=== PATIENT | female | born 1995 | race Caucasian/White ===

== ENCOUNTER 2017-08-05 03:17 | Emergency (ER) | payer BC, MEDICAID ==
--- NOTE | 2017-08-05 03:44 | ER Document Report ---
ED General - General Chief Complaint: Chest Pain Stated Complaint: CHEST PAIN Time Seen by Provider: 08/05/17 03:41 Notes: This is a pleasant 21-year-old female presents with complaint of onset of chest pain while she was sitting in bed watching [employer] videos. She says it felt like the contraction type pain in her chest followed by a feeling of her heart becoming ice cold. She says the pain has been intermittent since. No pain with deep breathing. No coughing up blood. No recent leg pain or leg swelling. No history of PE or DVT. No recent surgeries. No recent long road trips. Family history of heart disease or heart problems at young age. Patient did play sports growing up. She never had chest pain or syncope during a sporting event. TRAVEL OUTSIDE OF THE [place] IN LAST 30 DAYS: No - Related Data Allergies/Adverse Reactions: latex [Latex] Allergy (Verified 08/05/17 03:29) Past Medical History - Social History Smoking Status: Current Every Day Smoker Frequency of alcohol use: None Drug Abuse: None Family History: Reviewed & Not Pertinent Patient has suicidal ideation: No Patient has homicidal ideation: No Renal/ Medical History: Denies: Hx Peritoneal Dialysis - Immunizations Hx Diphtheria, Pertussis, Tetanus Vaccination: Yes - received during Review of Systems - Review of Systems Notes: My Normal Review Basic REVIEW OF SYSTEMS: CONSTITUTIONAL : Denies fever, chills, or sweats. Denies recent illness. EENT: Denies eye, ear, throat, or mouth pain or symptoms. Denies nasal or sinus congestion. CARDIOVASCULAR: Has chest pain RESPIRATORY: Denies cough, cold, or chest congestion. Denies shortness of breath, difficulty breathing, or wheezing. GASTROINTESTINAL: Denies abdominal pain. Denies nausea, vomiting, or diarrhea. GENITOURINARY: Denies difficulty urinating, painful urination, burning, frequency, or blood in urine. MUSCULOSKELETAL: Denies neck or back pain or joint pain or swelling. SKIN: Denies rash or skin lesions. NEUROLOGICAL: Denies altered mental status or loss of consciousness. Denies headache. Denies weakness or paralysis or loss of use of either side. Denies problems with gait or speech. Denies sensory or motor loss. ALL OTHER SYSTEMS REVIEWED AND NEGATIVE. Physical Exam - Vital signs Vitals: Temp Pulse Resp BP Pulse Ox 97.7 F 88 18 123/74 98 08/05/17 03:30 08/05/17 03:30 08/05/17 03:30 08/05/17 03:30 08/05/17 03:30 - Notes Notes: General Appearance: Well nourished, alert, cooperative, no acute distress, no obvious discomfort. Vitals: reviewed, See vital signs table. Head: no swelling or tenderness to the head Eyes: PERRL, EOMI, Conjuctiva clear Mouth: No decreasd moisture Lungs: No wheezing, No rales, No rhonci, No accessory muscle use, good air exchange bilaterally. Heart: Normal rate, Regular rythm, No murmur, no rub Abdomen: Normal BS, soft, No rigidity, No abdominal tenderness, No guarding, no rebound, no abdominal masses, no organomegaly Extremities: strength 5/5 in all extremities, good pulses in all extremities, no swelling or tenderness in the extremities, no edema. Skin: warm, dry, appropriate color, no rash Neuro: speech clear, oriented x 3, normal affect, responds appropriately to questions. Course - Re-evaluation Re-evalutation: 08/05/17 05:08 Patient continues to look well. Her only risk factor for PE is that she does smoke and does take oral control. No other risk factors that she has no recent travel, no recent surgeries, she is not tachycardic, not tachypneic, not hypoxic. Also clinically her pain is not consistent with that of a PE and that she has no pain with breathing respiration and no coughing or coughing up blood. I do not think she requires further workup for PE at this time. EKG and chest x-ray are negative. I will refer her to cardiology and told her to make an appointment to follow-up with them if her pain continues therefore they can do further workup such as Holter monitor echo if they feel it is needed. I informed her that if her pain keeps recurring or is worsening or she is having difficulty breathing or if she is having pleuritic type pain that she must return to ER so we can reevaluate her. Patient shows understanding of this and will be discharged home. Dictation of this chart was performed using voice recognition software; therefore, there may be some unintended grammatical errors. - Vital Signs Vital signs: Temp Pulse Resp BP Pulse Ox 97.7 F 88 18 123/74 98 08/05/17 03:30 08/05/17 03:30 08/05/17 03:30 08/05/17 03:30 08/05/17 03:30 - EKG Interpretation by Me Additional EKG results interpreted by me: 08/05/17 03:42 EKG is reviewed and interpreted by me. EKG shows normal sinus rhythm with rate of [address] segment elevation or depression. No ischemic T-wave inversions. WA interval, QRS duration, QTc intervals are within normal range. No old EKG available for comparison. Discharge - Discharge Clinical Impression: Chest pain Qualifiers: Chest pain type: unspecified Qualified Code(s): R07.9 - Chest pain, unspecified Condition: Good Disposition: HOME, SELF-CARE Additional Instructions: Chest x-ray and EKG were normal. You are low risk for blood clots in your lungs because your clinical presentation is not consistent with that of blood clots in the lungs. The only risk factor you have is that you do smoke while on control. Please quit smoking. Please follow-up with the singer and unloader , Dr. Villagran, for reevaluation if you continue to have any recurrent pain. Please return to the ER immediately if you have consistent pain, difficulty breathing, or fevers. Also if you have pain that is worse with deep breathing or any coughing up of blood you must return to the ER immediately. Forms: Special Work Note Referrals: RADHA VILLAGRAN MD [ACTIVE STAFF] - Follow up in 3-5 days
--- NOTE | 2017-08-05 04:35 | RADIOLOGY REPORT (SQ) ---
EXAM DESCRIPTION: CHEST PA/LAT COMPLETED DATE/TIME: 08/05/2017 4:07 am REASON FOR STUDY: chest pain COMPARISON: None. EXAM PARAMETERS: NUMBER OF VIEWS: two views TECHNIQUE: Digital Frontal and Lateral radiographic views of the chest acquired. RADIATION DOSE: NA LIMITATIONS: none FINDINGS: LUNGS AND PLEURA: No consolidation, pneumothorax or pleural effusion. MEDIASTINUM AND HILAR STRUCTURES: No masses or contour abnormalities. HEART AND VASCULAR STRUCTURES: Heart normal size. No evidence for failure. BONES: No acute findings. HARDWARE: None in the chest. IMPRESSION: No acute radiographic finding in the chest. TECHNICAL DOCUMENTATION: JOB ID: [id number] [employer]- All Rights Reserved
[2017-08-05 05:17] VITALS: BP 118/64
--- NOTE | 2017-08-05 07:56 | EKG REPORT ---
SEVERITY:- NORMAL ECG - SINUS RHYTHM : Confirmed by: Mauro Benavides MD 05-Aug-2017 07:56:11
== END 2017-08-05 05:26 | disposition home or self-care (01) ==
LOC: ER 03:17
DX: R07.9 Chest pain, unspecified (principal); F17.200 Nicotine dependence, unspecified, uncomplicated; Z91.040 Latex allergy status; Z79.3 Long term (current) use of hormonal contraceptives
CPT/HCPCS: 71020; 93005; 93010; 99285

== ENCOUNTER 2019-06-15 13:47 | Outpatient (CLI) | payer MEDICAID ==
[2019-06-15 16:05] LABS: APPEARANCE,URINE SLIGHTLY-CLOUDY; BILIRUBIN,URINE NEGATIVE (NEGATIVE); COLOR,URINE YELLOW; GLUCOSE, URINE NEGATIVE (NEGATIVE); KETONES,URINE 20 mg/dL (NEGATIVE); LEUKOCYTE ESTERASE,URINE MODERATE (NEGATIVE); NITRITE,URINE NEGATIVE (NEGATIVE); PROTEIN,URINE NEGATIVE (NEGATIVE); URINE SPECIFIC GRAVITY 1.015
[2019-06-15 16:15] LABS: URINE AMPHETAMINES SCREEN NEGATIVE; URINE BARBITURATES SCREEN NEGATIVE; URINE BENZODIAZEPINES SCREEN NEGATIVE; URINE COCAINE SCREEN NEGATIVE; URINE MARIJUANA (THC) SCREEN NEGATIVE; URINE METHADONE SCREEN NEGATIVE; URINE PHENCYCLIDINE SCREEN NEGATIVE
--- NOTE | 2019-06-15 16:48 | RADIOLOGY REPORT (SQ) ---
EXAM DESCRIPTION: U/S OB LIMITED COMPLETED DATE/TIME: 06/15/2019 4:23 pm REASON FOR STUDY: placenta well being and placement pt fell COMPARISON: None. TECHNIQUE: Limited transabdominal grayscale ultrasound for evaluation of specific requested obstetri preet parameters. LIMITATIONS: None. FINDINGS: CERVICAL LENGTH: 3.1 cm. Closed. CAMILO: 15.3 cm. FHR: 160 beats per minute. PRESENTATION: Cephalic. PLACENTA: Anterior location. ANATOMY: Not assessed OTHER: No other significant findings. IMPRESSION: LIMITED OBSTETRICAL ULTRASOUND WITH MEASURED PARAMETERS DELINEATED ABOVE. Trimester of : Third trimester - 28 weeks to delivery. TECHNICAL DOCUMENTATION: JOB ID: [id number] [employer]- All Rights Reserved Reading location - IP/workstation name: [email or web address]
== END 2019-06-15 17:30 | disposition home or self-care (01) ==
LOC: LC 13:47
PROVIDERS: ATTEND Obstetrics & Gynecology
PROC: 4A1HXCZ Monitoring of Products of Conception, Cardiac Rate, External Approach (ICD-10-PCS; principal; 2019-06-15)
DX: O99.89 Other specified diseases and conditions complicating pregnancy, childbirth and the puerperium (principal); M54.9 Dorsalgia, unspecified; Z3A.30 30 weeks gestation of pregnancy; W19.XXXA Unspecified fall, initial encounter
CPT/HCPCS: 76815; 80307; 81001

== ENCOUNTER 2019-06-25 16:09 | Emergency (ER) | payer MEDICAID ==
[2019-06-25 16:19] VITALS: BP 121/68
--- NOTE | 2019-06-25 17:01 | ER Document Report ---
ED Medical Screen (RME) - General Chief Complaint: Hemorrhoids Stated Complaint: hEMORRHOIDS Time Seen by Provider: 06/25/19 16:58 Primary Care Provider: SHAGUFTA CHAHAL MD [Primary Care Provider] - Follow up as needed Mode of Arrival: Ambulatory Information source: Patient Notes: 23-year-old female presents to ED for complaint of a hard painful hemorrhoid. She states she is 32 weeks . She states she went to the [facility] CL[facility] and they sent her to the emergency room. Patient is alert oriented respirations regular nonlabored. 2 para 1. She states her due date is August 17. I have greeted and performed a rapid initial assessment of this patient. A comprehensive ED assessment and evaluation of the patient, analysis of test results and completion of medical decision making process will be conducted by an additional ED providers. TRAVEL OUTSIDE OF THE [place] IN LAST 30 DAYS: No - Related Data Allergies/Adverse Reactions: latex [Latex] Allergy (Verified 08/05/17 03:29) Past Medical History Renal/ Medical History: Denies: Hx Peritoneal Dialysis - Immunizations Hx Diphtheria, Pertussis, Tetanus Vaccination: Yes - received during Physical Exam - Vital signs Vitals: Temp Pulse Resp BP Pulse Ox 97.7 F 124 H 18 121/68 97 06/25/19 16:18 06/25/19 16:18 06/25/19 16:18 06/25/19 16:18 06/25/19 16:18 Course - Vital Signs Vital signs: Temp Pulse Resp BP Pulse Ox 97.7 F 124 H 18 121/68 97 06/25/19 16:18 06/25/19 16:18 06/25/19 16:18 06/25/19 16:18 06/25/19 16:18 Doctor's Discharge - Discharge Referrals: SHAGUFTA CHAHAL MD [Primary Care Provider] - Follow up as needed
[2019-06-25 18:24] LABS: ABSOLUTE EOSINOPHILS # (AUTO) 0.1 10^3/uL (0.0-0.6); ABSOLUTE LYMPHOCYTES (AUTO) 2.8 10^3/uL (0.5-4.7); ABSOLUTE MONOCYTES (AUTO) 0.5 10^3/uL (0.1-1.4); ABSOLUTE NEUT (AUTO) 7.4 10^3/uL (1.7-8.2); BASOPHILS % (AUTO) 0.2 % (0-2); EOSINOPHILS % (AUTO) 0.8 % (0-6); HEMATOCRIT 31.8 % (36.0-47.0); LYMPHOCYTES % (AUTO) 26.1 % (13-45); MEAN CORPUSCULAR HEMOGLOBIN 31.6 pg (27.0-33.4); MEAN CORPUSCULAR HGB CONC 34.6 g/dL (32.0-36.0); MEAN CORPUSCULAR VOLUME 91 fl (80-97); MONOCYTES % (AUTO) 4.6 % (3-13); PLATELET COUNT 346 10^3/uL (150-450); RED BLOOD COUNT 3.49 10^6/uL (3.72-5.28); RED CELL DISTRIBUTION WIDTH 12.8 % (11.5-14.0); SEGMENTED NEUTROPHILS % (AUTO) 68.3 % (42-78); TOTAL CELLS COUNTED % (AUTO) 100 %; WHITE BLOOD COUNT 10.9 10^3/uL (4.0-10.5)
[2019-06-25 18:28] LABS: INTERNATIONAL RATION (INR) 0.99; PROTHROMBIN TIME 13.1 SEC (11.4-15.4)
[2019-06-25 18:29] LABS: PARTIAL THROMBOPLASTIN TIME 24.9 SEC (23.5-35.8)
[2019-06-25 18:42] LABS: APPEARANCE,URINE SLIGHTLY-CLOUDY; BILIRUBIN,URINE NEGATIVE (NEGATIVE); COLOR,URINE YELLOW; GLUCOSE, URINE 50 mg/dL (NEGATIVE); KETONES,URINE 20 mg/dL (NEGATIVE); PROTEIN,URINE NEGATIVE (NEGATIVE); URINE SPECIFIC GRAVITY 1.017
[2019-06-25 18:45] LABS: ALBUMIN 3.6 g/dL (3.5-5.0); ALKALINE PHOSPHATASE 137 U/L (38-126); ANION GAP 8 (5-19); ASPARTATE AMINO TRANSFERASE 16 U/L (14-36); BILIRUBIN,DIRECT 0.1 mg/dL (0.0-0.4); BILIRUBIN,TOTAL 0.3 mg/dL (0.2-1.3); BLOOD UREA NITROGEN 4 mg/dL (7-20); CALCIUM 8.9 mg/dL (8.4-10.2); CARBON DIOXIDE 23 mmol/L (22-30); CHLORIDE 104 mmol/L (98-107); GLUCOSE 108 mg/dL (75-110); TOTAL PROTEIN 6.3 g/dL (6.3-8.2)
[2019-06-25] MEDS ORDERED: ACETAMINOPHEN 325 MG TABLET PO ONE (21:12)
[2019-06-25] MEDS ORDERED: LIDOCAINE 2% JELLY 30 ML TUBE TOP ONE (21:34)
[2019-06-25] MEDS ORDERED: CEPHALEXIN 500 MG CAPSULE PO ONE (21:34)
--- NOTE | 2019-06-25 21:40 | ER Document Report ---
HPI - HPI Patient complains to provider of: Rectal pain Time Seen by Provider: 06/25/19 16:58 Onset: This morning Onset/Duration: Gradual Quality of pain: Achy Pain Level: 3 Context: Patient presents complaining of painful hemorrhoid that she developed today. Patient saw her [facility] [employer] provider today for this complaint and she was given a prescription for lidocaine jelly as well as hydrocortisone cream. Patient got the prescription for the hydrocortisone although has not used it yet. Patient states the pharmacy was out of the lidocaine. Patient is currently 32 weeks . Patient reports movement and no problems at this time with the . Associated Symptoms: Other - Rectal tenderness. denies: Nausea, Vomiting Exacerbated by: Movement Relieved by: Denies Similar symptoms previously: No Recently seen / treated by doctor: Yes - ROS ROS below otherwise negative: Yes Systems Reviewed and Negative: Yes All other systems reviewed and negative - CONSTITUTIONAL Constitutional: DENIES: Fever - GASTROINTESTINAL Gastrointestinal: DENIES: Abdominal Pain, Nausea Notes: Rectal tenderness with hemorrhoid - URINARY Urinary: DENIES: Dysuria, Urgency, Frequency - REPRODUCTIVE Reproductive: REPORTS: : - MUSCULOSKELETAL Musculoskeletal: DENIES: Extremity pain - DERM Skin Color: Normal Skin Problems: None Past Medical History - General Information source: Patient - Social History Smoking Status: Current Every Day Smoker Chew tobacco use (# tins/day): No Smoking Education Provided: Yes Frequency of alcohol use: None Drug Abuse: None Occupation: None Lives with: Family Family History: Reviewed & Not Pertinent Patient has suicidal ideation: No Patient has homicidal ideation: No - Medical History Medical History: Negative Renal/ Medical History: Denies: Hx Peritoneal Dialysis Surgical Hx: Negative - Immunizations Hx Diphtheria, Pertussis, Tetanus Vaccination: Yes - received during Vertical Provider Document - CONSTITUTIONAL Agree With Documented VS: No - not tachycardic Exam Limitations: No Limitations General Appearance: WD/WN, No Apparent Distress - INFECTION CONTROL TRAVEL OUTSIDE OF THE [place] IN LAST 30 DAYS: No - HEENT HEENT: Atraumatic, Normocephalic - NECK Neck: Normal Inspection, Supple - RESPIRATORY Respiratory: Breath Sounds Normal, No Respiratory Distress - CARDIOVASCULAR Cardiovascular: Regular Rate, Regular Rhythm. negative: Tachycardia - GI/ABDOMEN Gastrointestinal: Abdomen Soft Notes: gravid - REPRODUCTIVE Notes: Patient with external hemorrhoids, tender to palpation, no active bleeding. - BACK Back: Normal Inspection. negative: CVA Tenderness-Right, CVA Tenderness-Left - MUSCULOSKELETAL/EXTREMETIES Musculoskeletal/Extremeties: MAEW - NEURO Level of Consciousness: Awake, Alert, Appropriate Motor/Sensory: No Motor Deficit - DERM Integumentary: Warm, No Rash Course - Re-evaluation Re-evalutation: 06/25/19 21:36 Patient with external hemorrhoids that developed today. Patient saw her primary doctor for this complaint earlier today and was prescribed medicine. Patient states the pharmacy did not have the lidocaine jelly in stock and she has not yet use the steroid cream. Discussed with patient treatment options. Patient encouraged to use the prescribed medicine that she has at home as directed. Patient will be given topical lidocaine jelly here for symptomatic relief. She is without any findings worrisome for thrombosed hemorrhoid at this time. Patient encouraged to use her prescribed medicines at home as well as the topical lidocaine jelly for symptomatic improvement. Discussed sitz bath's. Patient also encouraged to avoid activities that increase her intraabdominal pressure. Patient is agreeable with discharge plan of care here tonight. Pt With findings worrisome for possible early UTI. Urine will be cultured and patient started on a short course of antibiotics at this time. - Vital Signs Vital signs: Temp Pulse Resp BP Pulse Ox 97.7 F 124 H 18 121/68 97 06/25/19 16:18 06/25/19 16:18 06/25/19 16:18 06/25/19 16:18 06/25/19 16:18 - Laboratory Result Diagrams: 06/25/19 18:06 06/25/19 18:06 Laboratory results interpreted by me: 06/25/19 06/25/19 06/25/19 17:55 18:06 18:06 WBC 10.9 H RBC 3.49 L Hgb 11.0 L Hct 31.8 L Sodium 134.9 L BUN 4 L Creatinine 0.34 L Alkaline Phosphatase 137 H Urine Glucose (UA) 50 H Urine Ketones 20 H Urine Blood SMALL H Urine Urobilinogen 2.0 H Leukocyte Esterase Rfl MODERATE H 06/25/19 21:36 Labs- Entire Visit 06/25/19 06/25/19 06/25/19 17:55 18:06 18:06 WBC 10.9 H RBC 3.49 L Hgb 11.0 L Hct 31.8 L MCV 91 MCH 31.6 MCHC 34.6 RDW 12.8 Plt Count 346 Lymph % (Auto) 26.1 Garza % (Auto) 4.6 Eos % (Auto) 0.8 Baso % (Auto) 0.2 Absolute Neuts (auto) 7.4 Absolute Lymphs (auto) 2.8 Absolute Monos (auto) 0.5 Absolute Eos (auto) 0.1 Absolute Basos (auto) 0.0 Seg Neutrophils % 68.3 PT 13.1 INR 0.99 APTT 24.9 Sodium Potassium Chloride Carbon Dioxide Anion Gap BUN Creatinine Est GFR ( Amer) Est GFR (MDRD) Non-Af Glucose Calcium Total Bilirubin Direct Bilirubin Neonat Total Bilirubin Neonat Direct Bilirubin Neonat Indirect Bili AST ALT Alkaline Phosphatase Total Protein Albumin Urine Color YELLOW Urine Appearance SLIGHTLY-CLOUDY Urine pH 6.0 Ur Specific Murray 1.017 Urine Protein NEGATIVE Urine Glucose (UA) 50 H Urine Ketones 20 H Urine Blood SMALL H Urine Nitrite (Reflex) NEGATIVE Urine Bilirubin NEGATIVE Urine Urobilinogen 2.0 H Leukocyte Esterase Rfl MODERATE H Urine RBC (Auto) 5 Urine Bacteria (Auto) TRACE Urine WBC (Reflex) 6 Squamous Epi Cells Auto 6 Urine Mucus (Auto) MANY Urine Ascorbic Acid NEGATIVE 06/25/19 18:06 WBC RBC Hgb Hct MCV MCH MCHC RDW Plt Count Lymph % (Auto) Garza % (Auto) Eos % (Auto) Baso % (Auto) Absolute Neuts (auto) Absolute Lymphs (auto) Absolute Monos (auto) Absolute Eos (auto) Absolute Basos (auto) Seg Neutrophils % PT INR APTT Sodium 134.9 L Potassium 4.0 Chloride 104 Carbon Dioxide 23 Anion Gap 8 BUN 4 L Creatinine 0.34 L Est GFR ( Amer) > 60 Est GFR (MDRD) Non-Af > 60 Glucose 108 Calcium 8.9 Total Bilirubin 0.3 Direct Bilirubin 0.1 Neonat Total Bilirubin Not Reportable Neonat Direct Bilirubin Not Reportable Neonat Indirect Bili Not Reportable AST 16 ALT 9 Alkaline Phosphatase 137 H Total Protein 6.3 Albumin 3.6 Urine Color Urine Appearance Urine pH Ur Specific Murray Urine Protein Urine Glucose (UA) Urine Ketones Urine Blood Urine Nitrite (Reflex) Urine Bilirubin Urine Urobilinogen Leukocyte Esterase Rfl Urine RBC (Auto) Urine Bacteria (Auto) Urine WBC (Reflex) Squamous Epi Cells Auto Urine Mucus (Auto) Urine Ascorbic Acid Discharge - Discharge Clinical Impression: UTI (urinary tract infection) Qualifiers: Urinary tract infection type: site unspecified Hematuria presence: with hematuria Qualified Code(s): N39.0 - Urinary tract infection, site not specified Hemorrhoids Qualifiers: Hemorrhoid type: unspecified Qualified Code(s): K64.9 - Unspecified hemorrhoids Condition: Stable Disposition: HOME, SELF-CARE Instructions: Cephalexin ([facility]), Hemorrhoids ([facility]), Urinary Tract Infection ([facility]) Additional Instructions: Return immediately for any new or worsening symptoms Followup with your primary care provider, call tomorrow to make a followup appointment Use medication that your doctor prescribed you today as directed Apply the topical lidocaine jelly 4 times a day as needed for pain relief Prescriptions: Cephalexin Monohydrate [Keflex 500 mg Capsule] 500 mg PO BID 5 Days capsule Forms: Smoking Cessation Education Referrals: SHAGUFTA CHAHAL MD [Primary Care Provider] - Follow up as needed
[2019-06-25] MEDS ORDERED: LIDOCAINE 2% JELLY 30 ML TUBE ONE (22:09)
== END 2019-06-25 22:21 | disposition home or self-care (01) ==
LOC: ER 16:09
DX: O22.43 Hemorrhoids in pregnancy, third trimester (principal); O23.43 Unspecified infection of urinary tract in pregnancy, third trimester; O26.893 Other specified pregnancy related conditions, third trimester; R31.9 Hematuria, unspecified; O99.333 Smoking (tobacco) complicating pregnancy, third trimester; F17.200 Nicotine dependence, unspecified, uncomplicated; Z3A.32 32 weeks gestation of pregnancy
CPT/HCPCS: 36415; 87086; 85025; 85610; 85730; 80053; 81001; J3490 ×2; 99283

== ENCOUNTER 2019-07-17 17:30 | Outpatient (CLI) | payer SELFPAY ==
[2019-07-17 18:23] LABS: AMORPHOUS SEDIMENT,URINE TRACE /HPF; APPEARANCE,URINE CLOUDY; BILIRUBIN,URINE NEGATIVE (NEGATIVE); COLOR,URINE YELLOW; GLUCOSE, URINE 150 mg/dL (NEGATIVE); KETONES,URINE TRACE mg/dL (NEGATIVE); LEUKOCYTE ESTERASE,URINE MODERATE (NEGATIVE); NITRITE,URINE NEGATIVE (NEGATIVE); PROTEIN,URINE NEGATIVE (NEGATIVE); URINE SPECIFIC GRAVITY 1.014
[2019-07-17] MEDS ORDERED: RINGERS SOLUTION,LACTATED 1,000 ML IV PRN (18:31)
[2019-07-17] MEDS ORDERED: HYDROXYZINE PAMOATE 50 MG CAPSULE ONE (18:39)
[2019-07-17 18:58] LABS: URINE AMPHETAMINES SCREEN NEGATIVE; URINE BARBITURATES SCREEN NEGATIVE; URINE BENZODIAZEPINES SCREEN NEGATIVE; URINE COCAINE SCREEN NEGATIVE; URINE MARIJUANA (THC) SCREEN NEGATIVE; URINE METHADONE SCREEN NEGATIVE; URINE PHENCYCLIDINE SCREEN NEGATIVE
[2019-07-17] MEDS ORDERED: HYDROXYZINE PAMOATE 50 MG CAPSULE PO ONE (19:15)
== END 2019-07-17 20:47 | disposition home or self-care (01) ==
LOC: LC 17:30
PROVIDERS: ATTEND Obstetrics & Gynecology
DX: O47.03 False labor before 37 completed weeks of gestation, third trimester (principal); Z3A.34 34 weeks gestation of pregnancy
CPT/HCPCS: 59025; 80307; 81001; 84112

== ENCOUNTER 2019-08-15 02:23 | Outpatient (CLI) | payer MEDICAID ==
--- NOTE | 2019-08-15 02:25 | Non Stress Test Report ---
Non Stress Test Datetime Report Generated by CPN: 08/15/2019 02:25 DEMOGRAPHIC EGA NST: 35.0 INDICATION Indication for Study: Ordered by Provider Indication for Study (NST) Other: uc's URINE RESULTS Urine Protein, NST: Negative Urine Ketones - NST: Positive Urine Glucose - NST: Positive Urine Blood - NST: Negative MONITORING Monitor Explained: Monitor Explained; Test Explained; Patient Verbalized Understanding Time on Monitor: 07/17/2019 17:55 Time off Monitor: 07/17/2019 20:08 NST Duration: 133 NST INTERVENTIONS NST Interventions: IV Fluids Physician Notified NST: Dr. Devyn BABY A: [id number] BABY A Movement : Present Contraction Frequency : 2-3 FHR Baseline : 145 Accelerations : 15X15 Variability : Moderate 6-25bpm NST Review: Meets Criteria for Reactive NST NST Review and Verified By : Lucila Saleem RN Results: Reactive NST REPORT Report Trigger: Send Report
[2019-08-15 02:49] LABS: APPEARANCE,URINE SLIGHTLY-CLOUDY; BILIRUBIN,URINE NEGATIVE (NEGATIVE); COLOR,URINE YELLOW; GLUCOSE, URINE NEGATIVE (NEGATIVE); KETONES,URINE 20 mg/dL (NEGATIVE); LEUKOCYTE ESTERASE,URINE MODERATE (NEGATIVE); NITRITE,URINE NEGATIVE (NEGATIVE); PROTEIN,URINE 30 mg/dL (NEGATIVE); URINE SPECIFIC GRAVITY 1.018
[2019-08-15 03:05] LABS: URINE AMPHETAMINES SCREEN NEGATIVE; URINE BARBITURATES SCREEN NEGATIVE; URINE BENZODIAZEPINES SCREEN NEGATIVE; URINE COCAINE SCREEN NEGATIVE; URINE MARIJUANA (THC) SCREEN NEGATIVE; URINE METHADONE SCREEN NEGATIVE; URINE PHENCYCLIDINE SCREEN NEGATIVE
--- NOTE | 2019-08-15 04:08 | Non Stress Test Report ---
Non Stress Test Datetime Report Generated by CPN: 08/15/2019 04:07 DEMOGRAPHIC EGA NST: 39.1 INDICATION Indication for Study (NST) Other: Labor check URINE RESULTS Urine Protein, NST: Positive Urine Ketones - NST: Positive Urine Glucose - NST: Negative Urine Blood - NST: Negative MONITORING Monitor Explained: Monitor Explained; Test Explained; Patient Verbalized Understanding Time on Monitor: 08/15/2019 02:04 Time off Monitor: 08/15/2019 03:57 NST Duration: 113 NST INTERVENTIONS NST Interventions: PO Hydration Physician Notified NST: Miranda BABY A Movement : Present Contraction Frequency : 4-7 FHR Baseline : 135 Accelerations : 15X15 Decelerations : None Variability : Moderate 6-25bpm NST Review: Meets Criteria for Reactive NST NST Review and Verified By : Philly Pagan RN NST Results: Reactive NST REPORT Report Trigger: Send Report
== END 2019-08-15 04:03 | disposition home or self-care (01) ==
LOC: LC 02:23
PROVIDERS: ATTEND Obstetrics & Gynecology
PROC: 4A1HXCZ Monitoring of Products of Conception, Cardiac Rate, External Approach (ICD-10-PCS; principal; 2019-08-15)
DX: O47.1 False labor at or after 37 completed weeks of gestation (principal); Z3A.39 39 weeks gestation of pregnancy
CPT/HCPCS: 59025; 80307; 81005; 84112

== ENCOUNTER 2020-01-20 08:45 | Emergency (ER) | payer SELFPAY ==
[2020-01-20] MEDS ORDERED: ONDANSETRON HCL INJ/PF 4 MG/2 ML SDV IV ONE (09:44)
--- NOTE | 2020-01-20 09:45 | ER Document Report ---
ED Medical Screen (RME) - General Chief Complaint: Abdominal Pain Stated Complaint: ABDOMINAL PAIN Time Seen by Provider: 01/20/20 09:43 Primary Care Provider: ELIZABETH GOTTI MD [Primary Care Provider] - Follow up as needed Notes: HPI: 24-year-old female presenting to the emergency department stating "I think it is my gallbladder". Patient states she has had problems with right upper quadrant and epigastric pain over the last month woke her from sleep around 330 this morning and is been constant and severe ever since. Patient points to the epigastric right upper quadrant region as the site of her discomfort she has had nausea with this no fever. Patient denies PHYSICAL EXAMINATION: Moderately uncomfortable. There is moderate tenderness to the epigastric right upper quadrant region on palpation no tenderness in the lower abdomen and pelvis on palpation limited by positioning in triage. I have greeted and performed a rapid initial assessment of this patient. A comprehensive ED assessment and evaluation of the patient, analysis of test results and completion of medical decision making process will be conducted by an additional ED providers. TRAVEL OUTSIDE OF THE [place] IN LAST 30 DAYS: No - Related Data Allergies/Adverse Reactions: latex [Latex] Allergy (Verified 08/18/19 19:15) Past Medical History Renal/ Medical History: Denies: Hx Peritoneal Dialysis - Immunizations Hx Diphtheria, Pertussis, Tetanus Vaccination: Yes - received during Physical Exam - Vital signs Vitals: Temp Pulse Resp BP Pulse Ox 97.7 F 87 20 97/50 L 99 01/20/20 08:51 01/20/20 08:51 01/20/20 08:51 01/20/20 08:51 01/20/20 08:51 Course - Vital Signs Vital signs: Temp Pulse Resp BP Pulse Ox 97.7 F 87 20 97/50 L 99 01/20/20 08:51 01/20/20 08:51 01/20/20 08:51 01/20/20 08:51 01/20/20 08:51 Doctor's Discharge - Discharge Referrals: ELIZABETH GOTTI MD [Primary Care Provider] - Follow up as needed
[2020-01-20] MEDS ORDERED: KETOROLAC TROMETHAMINE INJ/PF 30 MG/1 ML SDV IV ONE (10:08)
[2020-01-20] MEDS ORDERED: MORPHINE SULFATE 10 MG/ML INJ IV ONE (10:08)
[2020-01-20] MEDS ORDERED: NORMAL SALINE 1000 ML 1,000 ML IV ONE (10:08)
[2020-01-20 10:15] LABS: ABSOLUTE LYMPHOCYTES (AUTO) 1.2 10^3/uL (0.5-4.7); ABSOLUTE MONOCYTES (AUTO) 0.4 10^3/uL (0.1-1.4); ABSOLUTE NEUT (AUTO) 8.2 10^3/uL (1.7-8.2); BASOPHILS % (AUTO) 0.3 % (0-2); EOSINOPHILS % (AUTO) 0.2 % (0-6); HEMATOCRIT 38.4 % (36.0-47.0); HEMOGLOBIN 13.5 g/dL (12.0-15.5); LYMPHOCYTES % (AUTO) 12.5 % (13-45); MEAN CORPUSCULAR HEMOGLOBIN 32.3 pg (27.0-33.4); MEAN CORPUSCULAR VOLUME 92 fl (80-97); MONOCYTES % (AUTO) 3.7 % (3-13); PLATELET COUNT 292 10^3/uL (150-450); RED BLOOD COUNT 4.17 10^6/uL (3.72-5.28); RED CELL DISTRIBUTION WIDTH 13.5 % (11.5-14.0); SEGMENTED NEUTROPHILS % (AUTO) 83.3 % (42-78); TOTAL CELLS COUNTED % (AUTO) 100 %; WHITE BLOOD COUNT 9.9 10^3/uL (4.0-10.5)
[2020-01-20 10:31] LABS: ALBUMIN 4.7 g/dL (3.5-5.0); ALKALINE PHOSPHATASE 105 U/L (38-126); ANION GAP 8 (5-19); ASPARTATE AMINO TRANSFERASE 111 U/L (14-36); BILIRUBIN,DIRECT 0.4 mg/dL (0.0-0.4); BILIRUBIN,TOTAL 0.8 mg/dL (0.2-1.3); BLOOD UREA NITROGEN 12 mg/dL (7-20); CALCIUM 9.2 mg/dL (8.4-10.2); CARBON DIOXIDE 25 mmol/L (22-30); CHLORIDE 103 mmol/L (98-107); GLUCOSE 99 mg/dL (75-110); POTASSIUM 4.4 mmol/L (3.6-5.0); TOTAL PROTEIN 7.3 g/dL (6.3-8.2)
--- NOTE | 2020-01-20 11:03 | ER Document Report ---
Entered by JOHNSON VINSON SCRIBE 01/20/20 1004 Acting as scribe for:FREDERIC CHURCH MD ED GI/ - General Chief Complaint: Abdominal Pain Stated Complaint: ABDOMINAL PAIN Time Seen by Provider: 01/20/20 09:43 Primary Care Provider: ELIZABETH GOTTI MD [Primary Care Provider] - Follow up as needed Mode of Arrival: Ambulatory Information source: Patient Notes: This 24-year-old female patient presents to the emergency department today with complaints of abdominal pain since 3:30 AM this morning. Patient states that she thinks it is her gallbladder, mentioning that she has had intermittent pain like this for the last month. Patient states that she ate taco salad for dinner last night. Patient has had associated nausea and vomiting. TRAVEL OUTSIDE OF THE [place] IN LAST 30 DAYS: No - Related Data Allergies/Adverse Reactions: latex [Latex] Allergy (Verified 01/20/20 09:46) Home Medications: omeprazole Past Medical History - General Information source: Patient - Social History Smoking Status: Current Every Day Smoker Cigarette use (# per day): Yes Chew tobacco use (# tins/day): No Frequency of alcohol use: None Drug Abuse: None Lives with: Family Family History: Reviewed & Not Pertinent Patient has homicidal ideation: No - Medical History Medical History: Negative Surgical Hx: Negative - Immunizations Hx Diphtheria, Pertussis, Tetanus Vaccination: Yes - received during Review of Systems - Review of Systems Constitutional: No symptoms reported EENT: No symptoms reported Cardiovascular: No symptoms reported Respiratory: No symptoms reported Gastrointestinal: See HPI, Abdominal pain, Nausea, Vomiting Genitourinary: No symptoms reported Female Genitourinary: Last menstrual period - 01/16/20 Musculoskeletal: No symptoms reported Skin: No symptoms reported Hematologic/Lymphatic: No symptoms reported Neurological/Psychological: No symptoms reported -: Yes All other systems reviewed and negative Physical Exam - Vital signs Vitals: Temp Pulse Resp BP Pulse Ox 97.7 F 87 20 97/50 L 99 01/20/20 08:51 01/20/20 08:51 01/20/20 08:51 01/20/20 08:51 01/20/20 08:51 - Notes Notes: Physical Exam: General: Alert, appears uncomfortable, initially upon entry into the room the patient is bent over at the waist leaning on the bed for comfort. HEENT: Normocephalic. Atraumatic. PERRL. Extraocular movements intact. Oropharynx clear. Neck: Supple. Non-tender. Respiratory: No respiratory distress. Clear and equal breath sounds bilaterally. Cardiovascular: Regular rate and rhythm. Abdominal: Epigastric and right upper quadrant tenderness with palpation. No distension. Normal Bowel Sounds. Back: No gross abnormalities. Extremities: Moves all four extremities. Upper extremities: Normal inspection. Normal ROM. Lower extremities: Normal inspection. No edema. Normal ROM. Neurological: Normal cognition. AAOx4. Normal speech. Psychological: Normal affect. Normal Mood. Skin: Warm. Dry. Normal color. Course - Vital Signs Vital signs: Temp Pulse Resp BP Pulse Ox 98.4 F 72 16 108/57 L 96 01/20/20 12:57 01/20/20 12:57 01/20/20 12:57 01/20/20 12:57 01/20/20 12:57 - Laboratory Result Diagrams: 01/20/20 09:54 01/20/20 09:54 Laboratory results interpreted by me: 01/20/20 01/20/20 01/20/20 09:54 09:54 11:39 Lymph % (Auto) 12.5 L Seg Neutrophils % 83.3 H Sodium 136.4 L Creatinine 0.45 L AST 111 H ALT 70 H Urine Blood MODERATE H Ur Leukocyte Esterase SMALL H - Diagnostic Test Radiology reviewed: Image reviewed, Reports reviewed - Gallbladder ultrasound shows gallstones without gallbladder wall thickening or pericholecystic fluid. Common bile duct is dilated to 8.4 mm. There is no intrahepatic ductal dilatation. Discharge - Discharge Clinical Impression: Gallbladder colic Cholelithiasis Qualifiers: Cholelithiasis location: gallbladder Cholecystitis presence: without cholecystitis Biliary obstruction: without biliary obstruction Qualified Code(s): K80.20 - Calculus of gallbladder without cholecystitis without obstruction Condition: Stable Disposition: HOME, SELF-CARE Additional Instructions: Gallbladder Disease: Your evaluation shows evidence of gallbladder disease. The gallbladder is a pouch under the liver which stores bile. Stones, infection, or irritation of the gallbladder cause attacks of pain. Certain foods -- fats in particular -- may provoke attacks. The usual treatment for gallbladder disease is surgical removal of the gallbladder -- called a cholecystectomy. You will be referred to a physician qualified to advise you on the best treatment for your problem. Hospitalization is not necessary. Take clear liquids only until you are painfree. After that, you should stay on a low-fat diet, with frequent SMALL meals. Call the doctor or return at once if you develop severe pain, repeated vomiting, fever, or jaundice (a yellow color in the skin and whites of the eyes). Take the pain medication as prescribed if needed for a gallbladder attack. Stay on a low-fat diet and eat small meals. Call [facility] today to schedule an appointment for next week. RETURN TO THE EMERGENCY ROOM IF ANY NEW OR WORSENING SYMPTOMS. Prescriptions: Hydrocodone/Acetaminophen [[place] 5-325 mg Tablet] 1 tab PO ASDIR PRN #12 tablet PRN Reason: For Pain Referrals: ELIZABETH GOTTI MD [Primary Care Provider] - Follow up as needed [facility] [Provider Group] - Follow up in 3-5 days I personally performed the services described in the documentation, reviewed and edited the documentation which was dictated to the scribe in my presence, and it accurately records my words and actions.
[2020-01-20 12:06] LABS: APPEARANCE,URINE CLEAR; BILIRUBIN,URINE NEGATIVE (NEGATIVE); COLOR,URINE YELLOW; GLUCOSE, URINE NEGATIVE (NEGATIVE); KETONES,URINE NEGATIVE (NEGATIVE); LEUKOCYTE ESTERASE,URINE SMALL (NEGATIVE); NITRITE,URINE NEGATIVE (NEGATIVE); PROTEIN,URINE NEGATIVE (NEGATIVE); URINE SPECIFIC GRAVITY 1.005; UROBILINOGEN,URINE NEGATIVE mg/dL (<2.0)
--- NOTE | 2020-01-20 12:42 | RADIOLOGY REPORT (SQ) ---
EXAM DESCRIPTION: U/S ABDOMEN LIMITED W/O DOP IMAGES COMPLETED DATE/TIME: 01/20/2020 12:32 pm REASON FOR STUDY: RUQ pain COMPARISON: None. TECHNIQUE: Dynamic and static grayscale images acquired of the abdomen and recorded on PACS. Rachelo shena selected color Doppler and spectral images recorded. LIMITATIONS: None. FINDINGS: PANCREAS: No masses. Visualized pancreatic duct normal caliber. LIVER: The liver measures 14.7 cm in length, normal size. No masses. Echotexture normal. LIVER VASCULATURE: Normal directional flow of the main portal vein and hepatic veins. GALLBLADDER: Gallstones. The gallbladder wall measures 2.4 mm, normal wall thickness. No pericholecy stic fluid. ULTRASOUND-DETECTED JOSE'S SIGN: Negative. INTRAHEPATIC DUCTS AND COMMON DUCT: CBD measures 8.4 mm in AP diameter and is dilated. The intrahepa tic ducts normal caliber. No filling defects. INFERIOR VENA CAVA: Normal flow. AORTA: No aneurysm. RIGHT KIDNEY: The right kidney measures 10.2 x 4.1 cm, normal size. Normal echogenicity. Mild hydr onephrosis suggested in the upper- mid pole of the kidney. PERITONEAL AND RIGHT PLEURAL SPACE: No ascites or effusions. OTHER: No other significant findings. IMPRESSION: 1. Gallstones. 2. The common bile duct is dilated and measures 8.4 mm in diameter. Correlation suggested. 3. Additional finding as above. TECHNICAL DOCUMENTATION: JOB ID: [id number] 2010 [employer]- All Rights Reserved Reading location - IP/workstation name: [email or web address]
[2020-01-20 12:58] VITALS: BP 108/57
== END 2020-01-20 13:55 | disposition home or self-care (01) ==
LOC: ER 08:45
DX: K80.20 Calculus of gallbladder without cholecystitis without obstruction (principal); R11.2 Nausea with vomiting, unspecified; R10.816 Epigastric abdominal tenderness; R10.811 Right upper quadrant abdominal tenderness; F17.210 Nicotine dependence, cigarettes, uncomplicated; Z79.899 Other long term (current) drug therapy; Z91.040 Latex allergy status
CPT/HCPCS: 99284; 96361; 96374; 96375; 36415; 83690; 85025; 81025; 80053; 81001; 76705; J1885; J2270; J2405; J7030